=== PATIENT | male | born 1950 | race Two or more races ===

== ENCOUNTER → 2017-08-24 | Outpatient (CLI) | payer OTHER, MEDICARE ==
[~2017-08-24] MED LIST: GADOBUTROL 10 ML VIAL IVP ONE
== END ==
LOC: FIMAGING 14:10
PROVIDERS: ATTEND Internal Medicine Hematology & Oncology
DX: G93.89 Other specified disorders of brain (principal); C43.9 Malignant melanoma of skin, unspecified
CPT/HCPCS: 70553; A9585

== ENCOUNTER 2017-09-15 08:36 | Inpatient (IN) | payer OTHER, MEDICARE ==
[2017-09-15] MEDS ORDERED: LR 1,000 ML IV ONE (08:58)
[2017-09-15] MEDS ORDERED: LIDOCAINE 1% 2 ML INJ ID PRN (08:58)
[2017-09-15] MEDS ORDERED: MIDAZOLAM 2 MG/2 ML VIAL IVP ONE (09:46)
--- NOTE | 2017-09-15 09:46 | PDANEPAE ---
ANE History of Present Illness L parotidectomy with LN dissection ANE Past Medical History - Cardiovascular History Hx Hypertension: No Hx Arrhythmias: No Hx Chest Pain: No Hx Coronary Artery / Peripheral Vascular Disease: No Hx CHF / Valvular Disease: No Hx Palpitations: No Cardiovascular History Comment: on statin Rx - Pulmonary History Hx COPD: No Hx Asthma/Reactive Airway Disease: No Hx Recent Upper Respiratory Infection: No Hx Oxygen in Use at Home: No Hx Sleep Apnea: Yes Sleep Apnea Screening Result - Last Documented: Positive Pulmonary History Comment: SHONDA W/CPAP . remote hx of bronchitis. - Neurologic History Hx Cerebrovascular Accident: No Hx Seizures: No Hx Dementia: No Neurologic History Comment: Cancerous brain lesion. Imitrex and Excedrin PRN for migraines. 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 - Endocrine History Hx Diabetes: No - Renal History Hx Renal Disorders: No - Liver History Hx Hepatic Disorders: No - Neurological & Psychiatric Hx Hx Neurological and Psychiatric Disorders: Yes Neurological / Psychiatric History Comment: depression - Cancer History Hx Cancer: Yes Cancer History Comment: parotid . Brain. 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 - Chronic Pain History Chronic Pain: No - Surgical History Prior Surgeries: appy age 14. L achilles tendon. bilat total hips ANE Review of Systems Review of systems is: negative Review of Systems: - Exercise capacity METS (RN): 4 METS ANE Patient History - Allergies Allergies/Adverse Reactions: adhesive tape Allergy (Verified 09/15/17 09:16) Rash - Home Medications Home medications: home medication list seen and reviewed Home Medications: Ascorbic Acid [Vitamin C 500 mg (*)] 1,000 mg PO DAILY 08/26/17 [Last Taken ] Atorvastatin Calcium [Lipitor 20 mg (*)] 20 mg PO HS 08/26/17 [Last Taken 21:00] C/E/Zn/Cu/OM3/DHA/EPA/LUT/ZEAX [Preservision Areds 2 Softgel] 1 each PO DAILY [Last Taken 09/08/17] Cholecalciferol Vit D3 [Vitamin D3 (*)] 1,000 units PO DAILY 08/26/17 [Last Taken 09/08/17] Multivitamins [Multivitamin (*)] 1 each PO DAILY 08/26/17 [Last Taken 09/08/17] OLANZapine [Zyprexa] 2.5 mg PO HS 08/26/17 [Last Taken 09/14/17 21:00] Vilazodone HCl [Viibryd] 40 mg PO DAILY 08/26/17 [Last Taken 09/15/17 06:30] - NPO status NPO Status: no food or drink >8 hours NPO Since - Liquids (Date): 09/14/17 NPO Since - Liquids (Time): 19:00 NPO Since - Solids (Date): 09/14/17 NPO Since - Solids (Time): 19:00 - Smoking Hx Smoking Status: Never smoked ANE Labs/Vital Signs - Vital Signs Blood Pressure: 150/92 Heart Rate: 61 Respiratory Rate: 16 O2 Sat (%): 95 Height: 185.42 cm Weight: 88.451 kg ANE Physical Exam - Airway Neck exam: FROM Mallampati Score: Class 2 Mouth exam: normal dental/mouth exam - Pulmonary Pulmonary: no respiratory distress - Cardiovascular Cardiovascular: regular rate and rhythym - ASA Status ASA Status: III ANE Anesthesia Plan Anesthesia Plan: general endotracheal anesthesia
[2017-09-15] MEDS ORDERED: MUPIROCIN 2% 22 GM OINT ONE (09:51)
[2017-09-15] MEDS ORDERED: ceFAZolin 2 GM/SWFI 2 GM/20 ML SYR IVP ONE (10:08)
--- NOTE | 2017-09-15 10:08 | PDHPUP ---
History & Physical Update H&P update statement: This history and physical update is based on an assessment of the patient which was completed after admission or registration (within 24 hours), but prior to the surgery/procedure. H&P update: H&P reviewed & patient examined, no change in patient's condition since H&P completed H&P changes: Got preop clearance by PCP. Saw Derm, no primary site noted. Has brain met on MRI. They understand this is more debulking/pallative/control of locoregional site vs. cure at this point. Will need further tx either way. Will not plan on doing total parotidectomy unless 100% necessary to clear bulky dz which i think is unlikely, as this won't change ultimate outcome and could add sig risk/morbidity.
[2017-09-15] MEDS ORDERED: LIDOCAINE 1% 300 MG/30 ML SDV ONE (10:16)
[2017-09-15] MEDS ORDERED: SUGAMMADEX SODIUM 200 MG/2 ML VIAL IVP ONE (10:35)
[2017-09-15] MEDS ORDERED: LIDOCAINE 2% 100 MG/5 ML SYR ONE (10:35)
[2017-09-15] MEDS ORDERED: DEXAMETHASONE 4 MG/ML VIAL ONE (10:35)
[2017-09-15] MEDS ORDERED: ROCURONIUM 50 MG/5 ML VIAL ONE ×2 (10:35→14:01)
[2017-09-15] MEDS ORDERED: fentaNYL 100 MCG/2 ML INJ ONE ×2 (10:35→16:50)
[2017-09-15] MEDS ORDERED: ONDANSETRON 4 MG/2 ML VIAL ONE (10:35)
[2017-09-15] MEDS ORDERED: HYDROmorphONE/DILAUDID 2 MG/ML INJ ONE (10:35)
[2017-09-15] MEDS ORDERED: PROPOFOL 200 MG/20 ML VIAL ONE ×3 (10:36→14:35)
[2017-09-15] MEDS ORDERED: PROPOFOL/EMULSION 500 MG/50 ML BOTTLE IV ONE (11:05)
[2017-09-15] MEDS ORDERED: ACETAMINOPHEN 500 MG TAB PO PRN ×2 (15:07→16:34)
[2017-09-15] MEDS ORDERED: DEXAMETHASONE 4 MG/ML VIAL IVP PRN (15:07)
[2017-09-15] MEDS ORDERED: MEPERIDINE 25 MG/ML SYR IVP PRN (15:07)
[2017-09-15] MEDS ORDERED: PROMETHAZINE HCL 25 MG/ML INJ IVP PRN (15:07)
[2017-09-15] MEDS ORDERED: HYDROCODONE/APAP 5/325 TAB PO PRN (15:07)
[2017-09-15] MEDS ORDERED: NALOXONE HCL 0.4 MG/ML INJ IVP PRN (15:07)
[2017-09-15] MEDS ORDERED: ONDANSETRON 4 MG/2 ML VIAL IVP PRN ×2 (15:07→16:32)
[2017-09-15] MEDS ORDERED: OXYCODONE/APAP 5/325 TAB PO PRN ×2 (15:07→16:32)
--- NOTE | 2017-09-15 15:10 | POSTANESTH ---
Post Anesthetic Evaluation Cardiovascular Status: Normal, Stable, Similar to Pre-Op Cond Respiratory Status: Normal, Stable, Similar to Pre-op Cond. Level of Consciousness/Mental Status: Can Participate in Eval, Mildly Sleepy, Arousable Pain Control: Adequate, Prn Tx Ordered Nausea/Vomiting Control: Adequate, Prn Tx Ordered Complications Possibly Related to Anesthesia: None Noted
--- NOTE | 2017-09-15 16:32 | POSTOPPROG ---
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
[2017-09-15] MEDS ORDERED: D5W 1/2 NS W/ 20 KCl/L 1,000 ML IV SCH (16:45)
[2017-09-15] MEDS: fentaNYL 100 MCG/2 ML INJ IVP PRN ×2 (16:52→17:00)
[2017-09-15] MEDS: AMPICILLIN/SULBACTAM 3 GM in NS 100 ML IV SCH ×2 (18:19→23:43)
[2017-09-15] MEDS ORDERED: OLANZapine 2.5 MG TAB PO SCH (21:00)
[2017-09-16 04:54] VITALS: RESP 16
[2017-09-16] MEDS: AMPICILLIN/SULBACTAM 3 GM in NS 100 ML IV SCH ×2 (06:08→11:53)
[2017-09-16] MEDS ORDERED: CHOLECALCIFEROL VIT D3 1,000 UNITS TAB PO SCH (09:00)
[2017-09-16] MEDS ORDERED: ATORVASTATIN CALCIUM 20 MG TAB PO SCH (09:00)
[2017-09-16 11:18] VITALS: BP 108/85; PULSE 72; TEMP 97.9; O2SAT 90
--- NOTE | 2017-09-16 13:30 | SOAPPROG ---
SOAP Progress Note Assessment/Plan: Assessment: POD1 L total parotidectomy, L MRND, L SCM flap. Looks great, doing well. Drain put out quite a bit initially though slowed significantly overnight. 25 in bulb now. No milky fluid. Ok to go home with drain. Discussed what to watch for and what to call for. RTC wednesday for drain removal. D/c home with augmentin and percocet. Plan: 09/16/17 13:27 Subjective: doing well overall. Pain minimal. Feels funny L lower lip. Shoulder ok. eating fine. no fevers or other issues. Drain put out 135 cc initially last night, then 30 cc in nexgt 12 hours Objective: AFVSS RA incision c/d/i neck flap, no seroma/hematoma drain in place, stripped, 25 in bulb FN intact though L dexter weak. Vital Signs Temp Pulse Resp BP Pulse Ox 36.6 C 72 16 108/85 H 90 L 09/16/17 11:15 09/16/17 11:15 09/16/17 11:15 09/16/17 11:15 09/16/17 11:15 09/15/17 09/16/17 09/17/17 05:59 05:59 05:59 Intake Total 2680 Output Total 1385 30 Balance 1295 -30 ICD10 Worksheet Patient Problems: Problems Problem Status Onset Metastatic melanoma Acute - ICD10 Problem Qualifiers (1) Metastatic melanoma
--- NOTE | 2017-09-16 16:53 | ASDISCHSUM ---
Discharge Information Plan Status:Home with No Needs Medically Cleared to Leave: Discharge Date:09/16/2017 02:15 PM CM D/C Disposition:Home, Routine, Self-Care ADT D/C Disposition:Home, Routine, Self-Care Projected Discharge Date:09/16/2017 02:15 PM Transportation at D/C: Discharge Delay Reason: Follow-Up Date:09/16/2017 02:15 PM Discharge Slot: Final Diagnosis: Placement Information Patient Contact Information Contact Name:CATHYROSENCRANCE Relationship: Address:[address] Work Phone: City:[place] Alternate Phone: [facility]/Zip Code:[place] [address] Email: Financial Information Financial Class:MC Primary Plan Desc:MEDICARE INPATIENT Primary Plan Number:[id number] Secondary Plan Desc:AARP/MDR SUPPLEMENT Secondary Plan Number:[id number] Assessment Information Intervention Information
--- NOTE | 2017-09-16 16:53 | ASDISCHSUM ---
Discharge Information Plan Status:Home with No Needs Medically Cleared to Leave: Discharge Date:09/16/2017 02:15 PM CM D/C Disposition:Home, Routine, Self-Care ADT D/C Disposition:Home, Routine, Self-Care Projected Discharge Date:09/16/2017 02:15 PM Transportation at D/C: Discharge Delay Reason: Follow-Up Date:09/16/2017 02:15 PM Discharge Slot: Final Diagnosis: Placement Information Patient Contact Information Contact Name:CATHYROSENCRANCE Relationship: Address:[address] Work Phone: City:[place] Alternate Phone: [facility]/Zip Code:[place] [address] Email: Financial Information Financial Class:MC Primary Plan Desc:MEDICARE INPATIENT Primary Plan Number:[id number] Secondary Plan Desc:AARP/MDR SUPPLEMENT Secondary Plan Number:[id number] Assessment Information Intervention Information
--- NOTE | 2017-09-16 16:53 | ASDISCHSUM ---
Discharge Information Plan Status:Home with No Needs Medically Cleared to Leave: Discharge Date:09/16/2017 02:15 PM CM D/C Disposition:Home, Routine, Self-Care ADT D/C Disposition:Home, Routine, Self-Care Projected Discharge Date:09/16/2017 02:15 PM Transportation at D/C: Discharge Delay Reason: Follow-Up Date:09/16/2017 02:15 PM Discharge Slot: Final Diagnosis: Placement Information Patient Contact Information Contact Name:CATHYROSENCRANCE Relationship: Address:[address] Work Phone: City:[place] Alternate Phone: [facility]/Zip Code:[place] [address] Email: Financial Information Financial Class:MC Primary Plan Desc:MEDICARE INPATIENT Primary Plan Number:[id number] Secondary Plan Desc:AARP/MDR SUPPLEMENT Secondary Plan Number:[id number] Assessment Information Intervention Information
--- NOTE | 2017-09-20 15:20 | GOP ---
[f rep st] OPERATIVE REPORT DATE OF OPERATION: 09/15/2017 SURGEON: Keli Garcia MD CAN CONVEYOR FEEDER: Torres Tabares MD ANESTHESIA: General. PREOPERATIVE DIAGNOSIS: Metastatic melanoma to the left intraparotid lymph nodes. POSTOPERATIVE DIAGNOSIS: Metastatic melanoma to the left intraparotid lymph nodes. PROCEDURE PERFORMED: 1. Left total parotidectomy with facial nerve preservation. 2. Left modified radical neck dissections levels 2 through 4. 3. Left local regional sternocleidomastoid flap. 4. Facial nerve monitoring using the [employer] system with [employer]. FINDINGS: The patient was found to have very bulky disease in the superficial lobe of the parotid. After this was removed, there was also noted to be a bulky nodule in the deep lobe as well, which was in between the cervicofacial and temporofacial sections of the facial nerve. This was removed. Lev els 2 through 4 were taken in completion and there were multiple enlarged lymph nodes, but none that were overly concerning. The facial nerve monitor was used during the parotidectomy. The facial nerv e all major branches stimulated postoperatively and there were no overt complications. ESTIMATED BLOOD LOSS: Minimal, less than 100 cc. INDICATIONS: The patient is a very pleasant 67-year-old man who has a history of a left neck mass th at was noted by his dentist. He was seen by Dr. Tabares, who did an FNA and this showed metastatic m elanoma. A PET-CT scan was done, which showed multiple regions within the parotid that lit up on the PET, but no primary site and no other regions of local regional disease. He also had an MRI of the brain, which showed a solitary brain met. He was presented at the tumor board and a discussion was h ad about the best course for him. It was felt that removing the bulky disease, both for further test ing as well as to get rid of any microscopic disease, would be reasonable and so he was felt to be be nefitted by this. All the risks and benefits were discussed and they elected to proceed. DESCRIPTION OF PROCEDURE: The patient was first seen in the preoperative area, where informed consen t was obtained. He was then brought back to the operating room, where Anesthesia sedated and intubat ed him. The bed was turned 180 degrees and the facial nerve monitor was set up and confirmed to be w orking appropriately. A universal time-out was performed, and then once this was done a modified Stephen ir incision was made on the left and this was extended into a hockey-stick incision along the left ne ck and just across the midline, about 2 fingerbreadths above the sternal notch. Electrocautery on a low setting was used to make the skin incision through the skin and subcutaneous tissues, as well as through the platysma. A subplatysmal flap was elevated anteriorly and this extended into the flap ov er the face. This did include a little bit of fat underlying the skin flap, which hopefully will hel p with skin flap viability as well as decrease risk of Gurvinder syndrome. The flap was elevated anterior ly to the anterior border of the parotid, and then the subplatysmal flap was elevated up until the en tire angle of the mandible as well as the midline neck structures were noted. A small flap was eleva raghu posteriorly as well, and then [place] retractors were used to retract these areas back, giving good visualization of our parotid tissue. At this point, the posterior aspect of the parotid was rel eased from the external auditory canal as well as the SCM. Once I was able to visualize the entire S CM, I found the posterior belly of the digastric, and this was followed up until it met the SCM, and all the tissue anteriorly to this was dissected free. Of note, the greater auricular nerve was noted and it tended to be spared, at least the posterior branch of it, but it was noted to be going into d iseased tissue, and so it had to be cut and was actually not spared secondary to this. Once the SCM and the posterior belly of the digastric, as well as the tympanomastoid suture were all visualized, a t this point we began very carefully using blunt dissection with the burlisher along the area of the nerve in the same direction as the nerve to try to find this. I was able to visualize the nerve unde r my tines in its normal location. After the nerve was found, the nerve stimulator was used to confi rm this, and I then began my dissection along the nerve anteriorly. I was able to come to the pes, a nd then once I came to the pes the superior temporal facial division was followed. The burlisher was used to gently spread along the nerve, visualizing the nerve underneath my tines, and then the parot id tissue above this area was divided using the Harmonic scissors. This was continued this way until I was able to find the 2 different branches of this division, including the frontal and the zygomati c. The parotid was grasped with a Luz Elena and retracted anteriorly, while the frontal branch first w as followed all the way along until I was able release the entire superficial parotid off this. Once this was completely released, we continued our dissection along the area of the zygomatic branch of the facial nerve and, again, the parotid tissue was elevated anteriorly and off the underlying nerve roots. Once the temporofacial division was released and we had the top half of the superficial parot id retracted down, I then began to follow the inferior division at the pes and was able to find the b uccal branch, as well as the marginal mandibular branch of the facial nerve. Again, care was taken t o visualize the nerve and release the parotid tissue from around it and overlying it, keeping these n erve branches safe. Once we came to the cervical branch, this was cut, thereby releasing the entire superficial parotid. This was sent off the field for permanent pathology. His left superficial paro tid at this point, through visualization as well as palpation, was noted to have about a 2 cm nodule in the deep lobe of the parotid, and this was just in between the temporofacial and cervicofacial div isions. So at this point, the buccal branch as well as the zygomatic branch were completely released from the surrounding tissues, as well as the underlying parotid tissue. The marginal mandibular bra nch was also released completely. Once this was done, we were able to dissect out the deep lobe, whi ch included the area of disease as well as a large cuff of tissue around this. This was removed and then sent off as deep lobe of the parotid. Once this was done, all 4 major nerve branches stimulated well and were noted to be intact. At this point, we turned our attention to the neck dissection. We started our neck dissection by rel easing the fascia from the SCM, and then retracting the SCM posteriorly until we were able to find th e posterior nerve rootlets. I also was able to find the spinal accessory nerve, was dissected out an d kept intact. Once these structures were visualized superiorly, I delineated the superior aspect of the lateral portion of the internal jugular vein along the area at the junction with the spinal acce ssory nerve. Once this was done, I then also dissected out the inferior aspect of the lateral portio n of the internal jugular vein, so this was visualized at both points. The omohyoid muscle was divid ed overlying the internal jugular vein, thereby giving us better access to level 4. At this point, pete baltazar then started our dissection in level 2A. We removed the lymph tissue and fat down to the deep neck musculature, as well as releasing it off the undersurface of the SCM, taking care to keep the spinal accessory nerve intact. Once this tissue was released, it was brought underneath the spinal accesso ry nerve to combine with level 2A. I then began grasping levels 2, 3, and 4 with [place], and then these were retracted anteriorly and superiorly, and the tissue was then elevated off the deep aspect of the neck musculature, preserving the posterior cervical nerve rootlets, which was our posterior lucila undary. We released this area completely up until the carotid sheath. At this point, the carotid sh eath was gently dissected free using a burlisher, as well as Harmonic scissors to release the tissue from the carotid sheath and keep the carotid sheath intact and preserved. The lymph tissue in level 4 was clamped and stick ties were placed around this area to try to prevent chyle leak. Once this wa s completely released from the other deep tissue, it was completely released off the lateral portion of the carotid sheath, coming anteriorly, and then this was brought anteriorly over the area of the s trap musculature and then divided. Once this was done, we divided the specimen into levels 2, 3 and 4, and sent this off the field for permanent pathology. He did have multiple nodes within levels 2 a nd 3 that looked enlarged. Of note, we did have to ligate and divide the common facial vein during t his dissection anteriorly. Once this was done, the wound was irrigated out copiously with normal alex ine and then cleared. A Valsalva was given by Anesthesia and this was shown to have no significant a ctive bleeding or chyle leak. Once this was done, we then had discussed about doing an SCM flap. Th is was done in part to protect the nerve. It also helps decrease the defect that is caused by the pa rotidectomy, and most importantly it helped prevent Gurvinder syndrome, and so we decided that this would be a good thing to do for the patient. So the SCM was divided in half at about the shelter point of the muscle. Once this was divided in half horizontally, we then began to release this portion of the muscle to be able to rotate it up until it was able to cover the nerve. This was released enough th at it was able to cover the nerve, but not enough that it would decrease its blood supply. We did ke ep the spinal accessory nerve under visualization at all times. Once this was done, the muscle was a ble to reach the entire portion of the parotid bed and over the facial nerve. It was fanned out and then 3-0 Vicryl used to attach this area to the area surrounding the nerve, thereby keeping it safe. Once this was done, a 15-[place] round silicone perforated drain was placed, and then exiting the ski n. A 2-0 silk was used to suture this drain to the skin and then all the [place] were released. The flaps were replaced and then the platysma and subcutaneous tissues were closed using 3-0 Vicryl i n an interrupted fashion, and then the skin of the neck was closed using a stapler, and then the skin of the face and down past the angle of the mandible was closed using 5-0 nylon in a running fashion. Once this was done, the nerve monitor was still able to be stimulated by palpation of the face. e nerve monitor was removed and then a face lift dressing was placed over the area of the left paroti dectomy for even more assistance with preventing a postop hematoma or seroma. Once this was done, e patient was turned back over to Anesthesia, where he was awoken and extubated and taken to PACU in stable condition. There were no complications. He tolerated the procedure well and was admitted to the floor postoperatively. COMPLICATIONS: None. /[id number]/MODL
== END 2017-09-16 14:15 | disposition home or self-care (01) | DRG 828 ==
LOC: F3E 08:36
PROVIDERS: ADMIT Otolaryngology; ATTEND Otolaryngology
PROC: 4A1034G Monitoring of Central Nervous Electrical Activity, Intraoperative, Percutaneous Approach (ICD-10-PCS; principal; 2017-09-15 10:15)
PROC: 0CT90ZZ Resection of Left Parotid Gland, Open Approach (ICD-10-PCS; principal; 2017-09-15 10:15)
PROC: 07T20ZZ Resection of Left Neck Lymphatic, Open Approach (ICD-10-PCS; principal; 2017-09-15 10:15)
PROC: 0KX30ZZ Transfer Left Neck Muscle, Open Approach (ICD-10-PCS; principal; 2017-09-15 10:15)
DX: C79.89 Secondary malignant neoplasm of other specified sites (principal); C43.4 Malignant melanoma of scalp and neck; G47.33 Obstructive sleep apnea (adult) (pediatric); H54.8 Legal blindness, as defined in USA; E78.5 Hyperlipidemia, unspecified; R59.1 Generalized enlarged lymph nodes
CPT/HCPCS: J0171; J0295; J0690; J1100; J1170; J2001; J2250; J2405; J2704; J3010

== ENCOUNTER → 2017-11-23 | Outpatient (CLI) | payer OTHER, MEDICARE | LOC: FIMAGING 13:11 | PROVIDERS: ATTEND Surgery | DX: Z45.2 Encounter for adjustment and management of vascular access device (principal) ==

== ENCOUNTER → 2018-01-11 | Outpatient (CLI) | payer OTHER, MEDICARE | LOC: FIMAGING 14:17 | PROVIDERS: ATTEND Nurse Practitioner | DX: R22.32 Localized swelling, mass and lump, left upper limb (principal) ==

== ENCOUNTER → 2018-02-04 | Outpatient (CLI) | payer OTHER, MEDICARE | LOC: FIMAGING 12:12 | DX: C79.31 Secondary malignant neoplasm of brain (principal); G93.89 Other specified disorders of brain; C43.9 Malignant melanoma of skin, unspecified | CPT/HCPCS: 70553; A9585; J1642 ==

== ENCOUNTER → 2018-08-08 | Outpatient (CLI) | payer OTHER, MEDICARE | LOC: FIMAGING 12:29 | PROVIDERS: ATTEND Internal Medicine Hematology & Oncology | DX: C79.31 Secondary malignant neoplasm of brain (principal); C43.9 Malignant melanoma of skin, unspecified | CPT/HCPCS: 70553; A9585 ==

== ENCOUNTER → 2019-05-02 | Outpatient (CLI) | payer OTHER, MEDICARE | LOC: FIMAGING 09:48 ==